=== PATIENT | male | born 1975 ===

== ENCOUNTER 2021-06-05 13:04 | Emergency (ER) | payer BC ==
[2021-06-05] MEDS ORDERED: LORazepam 2 MG/ML SDV IVPUSH ONE ×3 (13:12→14:58)
[2021-06-05] MEDS ORDERED: Sodium Chloride 0.9% 1,000 ML IV ONE (13:30)
[2021-06-05] MEDS ORDERED: Sodium Chloride 0.9% 500 ML IV ONE (14:57)
[2021-06-05] MEDS ORDERED: LORazepam 1 MG Tab ONE ×2 (16:30→16:31)
== END 2021-06-05 17:00 | disposition home or self-care (01) ==
LOC: LB.ED 13:04
DX: R07.9 Chest pain, unspecified (principal); T40.715A Adverse effect of cannabis, initial encounter; I10 Essential (primary) hypertension; Z88.0 Allergy status to penicillin
CPT/HCPCS: 36415; 71045; 80048; 80307; 84484; 85025; 85379; 93005; 96374; 96376; 99285; A0425; A0429; A9270; J2060; J7030; J7040